=== PATIENT | male | born 1965 | race Caucasian/White ===

== ENCOUNTER 2018-10-24 11:52 | Emergency (ER) | payer OTHER ==
--- NOTE | 2018-10-24 11:54 | ED Physician Documentation ---
Fall - HISTORIAN Historian: patient - HPI Stated Complaint: fell and hit his back/neck/head Chief Complaint: Fall Onset: just prior to arrival Where: home Context: slipped r: mild Associated Symptoms:: no loss of consciousness Location of Pain/Injury: head, neck, upper back, mid back, lower back, upper ext remity, hip Injury to Right Extremity: arm Injury to Left Extremity: none Further Comments: yes (he states he slipped down 4 stairs. Hit and scapped his back but hit his head and did feel "dazed" but did not have any LOC. He remembers the entire incident. He has pain in his right foream and back as well as head. He has no report of loss of control of bowel or bladder) - ROS CONST: no problems GI/: denies: problems urinating - PAST HX Past History: other (hypertension, PTSD, depression ) Immunizations: UTD Allergies/Adverse Reactions: Allergies Allergy/AdvReac Type Severity Reaction Status Date / Time No Known Allergies Allergy Verified 10/24/18 14:28 - SOCIAL HX Smoking History: non-smoker Alcohol Use: none Drug Use: none - FAMILY HX Family History: none - REVIEWED ASSESSMENTS Nursing Assessment Reviewed: Yes Vitals Reviewed: Yes Progress - Progress Progress: 1302: discussed findings resulted. He does not want IM medication due to fear of needles DG 1338: Pt states he would like [facility] [place] [facility] [place] ER states they cannot take pt Dr Britton [facility] will take pt DG ED Results Lab/Radiology - Radiology Radiology Impressions: CT HEAD WO CONTRAST History: FALL BACKWARDS OFF STAIRS. HEADACHE, BILATERAL HIP PAIN, BACK PAIN, AND RT ARM PAIN Technique: Standard noncontrast CT was performed with contiguous axial images acquired from skull base to vertex. Findings: There is no acute extra-axial fluid collection. Ventricles are of normal size, shape, and morphology. No mass effect or midline shift is present. No evidence of acute hemorrhage. The hernandez-white matter differentiation is normal. The visualized portions of the orbits, and paranasal sinuses, and mastoids are normal. No fractures are identified. Impression: 1. Normal non contrast brain CT. Electronically signed on Oct 24, 2018 12:55:46 PM OIL WELL PERFORATOR OPERATOR by: Aba Pollard CT cervical spine without contrast History: Pain after fall backwards. Technique: Transaxial computed tomographic images of the cervical spine were obtained without contrast according to standard protocol. Findings: There is reversal of the normal cervical lordosis. There is no evidence of acute fracture. The odontoid process is intact. There is intervertebral disc space narrowing most significant at C5-C6 and C6-C7 with anterior spurring and mild posterior disc bulging noted at these levels. There is no paravertebral soft tissue swelling present. The lung apices are clear. Impression: 1. No acute osseous injury. 2. Reversal of normal cervical lordosis with multilevel spondylosis. Electronically signed on Oct 24, 2018 12:56:27 PM OIL WELL PERFORATOR OPERATOR by: Aba Pollard FOREARM 2 VIEWS History: FALL BACKWARDS OFF STAIRS. HEADACHE, BILATERAL HIP PAIN, BACK PAIN, AND RT ARM PAIN. Findings: The osseous structures are intact without acute fracture. The joint space and alignment are normal. There is no soft tissue swelling. Impression: 1. No acute osseous abnormality. Electronically signed on Oct 24, 2018 12:54:27 PM OIL WELL PERFORATOR OPERATOR by: Aba Pollard CT thoracic spine without contrast History: Back pain after fall. Technique: Transaxial computed tomographic images of the cervical spine were obtained without contrast according to standard protocol. Coronal and sagittal reformatted images were obtained as part of the examination. Findings: The thoracic vertebral body heights and alignments are normal. There is a fracture of the right T12and L1 transverse process and posterior lateral aspect of the right 12th rib. There is intervertebral disc space narrowing the mid and lower thoracic spine. There is anterior spurring present also within the mid and lower thoracic spine. A Schmorl's node is seen in the superior endplate of T10. Small right pleural effusion is present with trace right pneumothorax seen. Subcutaneous gas is seen extending along the posterior lateral aspect of the chest wall. Impression: 1. Right T12 and L1 transverse process fracture with fracture of the posterior lateral aspect of the right 12th rib partially imaged. 2. Trace right pleural effusion and trace pneumothorax on the right with gas extending into the posterior lateral aspect of the chest wall. Electronically signed on Oct 24, 2018 1:03:31 PM OIL WELL PERFORATOR OPERATOR by: Aba Pollard CT pelvis without contrast History: Fall backwards with bilateral hip pain and back pain. Technique: Transaxial computed tomographic images of the pelvis were obtained without contrast according to standard protocol. Findings: Bilateral proximal femurs are intact with femoral head is well seated within the respective acetabula. There is mild narrowing of the bilateral hip joint spaces. The osseous structures the pelvis are intact. There is degenerative change in lower lumbar spine most prominent at L5-S1. No evidence of subcutaneous large hematoma present. Few diverticula present in the colon. No free fluid is present. Impression: 1. No acute osseous injury of the pelvis. 2. Mild lumbar spondylosis. Electronically signed on Oct 24, 2018 1:09:34 PM OIL WELL PERFORATOR OPERATOR by: Aba Pollard CT lumbar spine without contrast History: Fall with pain. Technique: Transaxial computed tomographic images of the lumbar spine were obtained without contrast according to standard protocol. Findings: There is a fracture of the right T12 and L1 transverse process. There is mild wedging deformity present at L1 which is age indeterminate. There is also a Schmorl's node in the superior endplate of L1 noted. This could be chronic. There is a fracture of the posterior lateral aspect of the right 12th rib with trace right pneumothorax is visualized. There is degenerative change in the lower lumbar spine with minimal anterolisthesis of L4 on L5 present. There is facet arthropathy at L4-5 and L5- S1. Impression: 1. Acute fracture the right T12 and L1 transverse process. 2. Right posterior lateral 12th rib fracture with trace right pneumothorax. 3. Wedging deformity present at L1 with superior endplate Schmorl's node present, this fracture is age indeterminate . 4. Multilevel spondylosis. Electronically signed on Oct 24, 2018 1:08:34 PM OIL WELL PERFORATOR OPERATOR by: Aba Pollard Fall Physical Exam - Physical Exam General Appearance: no acute distress, alert, mild distress. No: c-collar DENTAL SALES REPRESENTATIVE, c-collar in ED, backboard DENTAL SALES REPRESENTATIVE, backboard in ED Head: trauma (right posterior scalp with mild swelling . ) Neck: painless ROM, limited ROM (pain with palpation right lateral side of neck. ) Eye: LAMBERTO ENT: nml external inspection Resp/CVS: chest non-tender, breath sounds nml, no resp. distress, heart sounds nml Abdomen: soft, normal bowel sounds, no distension Neuro: oriented x3, CN's nml as tested, sensation nml, motor nml, mood/affect nml, non profit director nml, reflexes nml, non profit director symmetrical Skin: color nml, other (red abrasion on right middle to lower lateral back pain with palpation in this area ) Back: other (pain with palpation right back upper mid lower ) Extremities: atraumatic, pelvis stable, painful weight bearing, other (pain with palpation right hip ) Joint: joints nml, painful (walking on right side -- right forearm with small open abrasion with crusting blood. Pulses + FROM pain with palpation. ) - Gail Coma Score Eyes Open: Spontaneous Speech: Oriented Motor: Obeys Commands Discharge Clincal Impression: Pneumothorax Qualifiers: Pneumothorax type: traumatic Encounter type: initial encounter Qualified Co de(s): S27.0XXA - Traumatic pneumothorax, initial encounter Referrals: Primary Doctor,No [Primary Care Provider] - 2 Days Condition: Serious Disposition: XFER SHT-TRM HOSP Decision to Admit: NO Date of Decison to Admit: 10/24/18 Decision Time: 13:39
[2018-10-24] MEDS ORDERED: ORPHENADRINE CITRATE 60 MG/2 ML ML IM ONE (12:59)
[2018-10-24] MEDS ORDERED: KETOROLAC TROMETHAMINE 60 MG/2 ML VIAL IM ONE (12:59)
[2018-10-24] MEDS ORDERED: oxyCODONE/ACETAMINOPHEN 5/325 TABLET PO ONE (13:02)
[2018-10-24] MEDS ORDERED: CYCLOBENZAPRINE HCL 10 MG TABLET PO ONE (13:02)
--- NOTE | 2018-10-24 13:06 | Diagnostic Imaging Report ---
PATRICIA NEWBERRY [facility] [address] [facility].[address] [address] Report Submission Date: Oct 24, 2018 12:54:27 PM OUTPATIENT COORDINATOR Patient Study Name: ALTAF SHIPLEY Date: Oct 24, 2018 12:26:03 PM OUTPATIENT COORDINATOR Modality Type: DX Gender: M Description: FOREARM 2 VIEWS : 61 Institution: [facility] Physician: PATRICIA NEWBERRY FOREARM 2 VIEWS History: FALL BACKWARDS OFF STAIRS. HEADACHE, BILATERAL HIP PAIN, BACK PAIN, AND RT ARM PAIN. Findings: The osseous structures are intact without acute fracture. The joint space and alignment are normal. There is no soft tissue swelling. Impression: 1. No acute osseous abnormality. Electronically signed on Oct 24, 2018 12:54:27 PM OUTPATIENT COORDINATOR by: Aba HSIEH
--- NOTE | 2018-10-24 13:07 | Diagnostic Imaging Report ---
PATRICIA NEWBERRY [facility] [address] [facility] [address] [place], [place]. [address] Report Submission Date: Oct 24, 2018 12:56:27 PM SALES COMMISSIONS ANALYST Patient Study Name: ALTAF SHIPLEY Date: Oct 24, 2018 12:13:55 PM SALES COMMISSIONS ANALYST Modality Type: CT Gender: M Description: CT C-SPINE W/O CONTRAS : 61 Institution: [facility] Physician: PATRICIA NEWBERRY CT cervical spine without contrast History: Pain after fall backwards. Technique: Transaxial computed tomographic images of the cervical spine were obtained without contrast according to standard protocol. Findings: There is reversal of the normal cervical lordosis. There is no evidence of acute fracture. The odontoid process is intact. There is intervertebral disc space narrowing most significant at C5-C6 and C6-C7 with anterior spurring and mild posterior disc bulging noted at these levels. There is no paravertebral soft tissue swelling present. The lung apices are clear. Impression: 1. No acute osseous injury. 2. Reversal of normal cervical lordosis with multilevel spondylosis. Electronically signed on Oct 24, 2018 12:56:27 PM SALES COMMISSIONS ANALYST by: Aba Pollard [facility] CENTER[facility]
--- NOTE | 2018-10-24 13:07 | Diagnostic Imaging Report ---
PATRICIA NEWBERRY [facility] [address] [facility] [address] [place], [place]. [address] Report Submission Date: Oct 24, 2018 12:55:46 PM TIE IN MACHINE OPERATOR Patient Study Name: ALTAF SHIPLEY Date: Oct 24, 2018 12:11:41 PM TIE IN MACHINE OPERATOR Modality Type: CT Gender: M Description: CT BRAIN W/O CONTRAST : 61 Institution: [facility] Physician: PATRICIA NEWBERRY CT HEAD WO CONTRAST History: FALL BACKWARDS OFF STAIRS. HEADACHE, BILATERAL HIP PAIN, BACK PAIN, AND RT ARM PAIN Technique: Standard noncontrast CT was performed with contiguous axial images acquired from skull base to vertex. Findings: There is no acute extra-axial fluid collection. Ventricles are of normal size, shape, and morphology. No mass effect or midline shift is present. No evidence of acute hemorrhage. The hernandez-white matter differentiation is normal. The visualized portions of the orbits, and paranasal sinuses, and mastoids are normal. No fractures are identified. Impression: 1. Normal non contrast brain CT. Electronically signed on Oct 24, 2018 12:55:46 PM TIE IN MACHINE OPERATOR by: Aba SHIEH
--- NOTE | 2018-10-24 13:08 | Diagnostic Imaging Report ---
PATRICIA NEWBERRY [facility] [address] [facility] [address] [place] [address]. [address] Report Submission Date: Oct 24, 2018 1:03:31 PM PRINT TRAFFIC MANAGER Patient Study Name: ALTAF SHIPLEY Date: Oct 24, 2018 12:16:11 PM PRINT TRAFFIC MANAGER Modality Type: CT Gender: M Description: CT T-SPINE W/O CONTRAS : 61 Institution: [facility] Physician: PATRICIA NEWBERRY CT thoracic spine without contrast History: Back pain after fall. Technique: Transaxial computed tomographic images of the cervical spine were obtained without contrast according to standard protocol. Coronal and sagittal reformatted images were obtained as part of the examination. Findings: The thoracic vertebral body heights and alignments are normal. There is a fracture of the right T12and L1 transverse process and posterior lateral aspect of the right 12th rib. There is intervertebral disc space narrowing the mid and lower thoracic spine. There is anterior spurring present also within the mid and lower thoracic spine. A Schmorl's node is seen in the superior endplate of T10. Small right pleural effusion is present with trace right pneumothorax seen. Subcutaneous gas is seen extending along the posterior lateral aspect of the chest wall. Impression: 1. Right T12 and L1 transverse process fracture with fracture of the posterior lateral aspect of the right 12th rib partially imaged. 2. Trace right pleural effusion and trace pneumothorax on the right with gas extending into the posterior lateral aspect of the chest wall. Electronically signed on Oct 24, 2018 1:03:31 PM PRINT TRAFFIC MANAGER by: Aba HSIEH
--- NOTE | 2018-10-24 13:15 | Diagnostic Imaging Report ---
PATRICIA NEWBERRY [facility] [place] [facility] [address] [facility] [address] [place], [place]. [address] Report Submission Date: Oct 24, 2018 1:09:34 PM PLC TECHNICIAN Patient Study Name: ALTAF SHIPLEY Date: Oct 24, 2018 12:22:05 PM PLC TECHNICIAN Modality Type: CT Gender: M Description: CT PELVIS W/O CONTRAST : 61 Institution: [facility] [place] [facility] Physician: PATRICIA NEWBERRY CT pelvis without contrast History: Fall backwards with bilateral hip pain and back pain. Technique: Transaxial computed tomographic images of the pelvis were obtained without contrast according to standard protocol. Findings: Bilateral proximal femurs are intact with femoral head is well seated within the respective acetabula. There is mild narrowing of the bilateral hip joint spaces. The osseous structures the pelvis are intact. There is degenerative change in lower lumbar spine most prominent at L5-S1. No evidence of subcutaneous large hematoma present. Few diverticula present in the colon. No free fluid is present. Impression: 1. No acute osseous injury of the pelvis. 2. Mild lumbar spondylosis. Electronically signed on Oct 24, 2018 1:09:34 PM PLC TECHNICIAN by: Aba HSIEH
--- NOTE | 2018-10-24 13:15 | Diagnostic Imaging Report ---
PATRICIA NEWBERRY [facility] [place] [facility] [address] [facility] [address] [place], [place]. [address] Report Submission Date: Oct 24, 2018 1:08:34 PM LUMP ROLLER Patient Study Name: ALTAF SHIPLEY Date: Oct 24, 2018 12:19:19 PM LUMP ROLLER Modality Type: CT Gender: M Description: CT L-SPINE W/O CONTRAS : 61 Institution: [facility] [place] [facility] Physician: PATRICIA NEWBERRY CT lumbar spine without contrast History: Fall with pain. Technique: Transaxial computed tomographic images of the lumbar spine were obtained without contrast according to standard protocol. Findings: There is a fracture of the right T12 and L1 transverse process. There is mild wedging deformity present at L1 which is age indeterminate. There is also a Schmorl's node in the superior endplate of L1 noted. This could be chronic. There is a fracture of the posterior lateral aspect of the right 12th rib with trace right pneumothorax is visualized. There is degenerative change in the lower lumbar spine with minimal anterolisthesis of L4 on L5 present. There is facet arthropathy at L4-5 and L5- S1. Impression: 1. Acute fracture the right T12 and L1 transverse process. 2. Right posterior lateral 12th rib fracture with trace right pneumothorax. 3. Wedging deformity present at L1 with superior endplate Schmorl's node present, this fracture is age indeterminate . 4. Multilevel spondylosis. Electronically signed on Oct 24, 2018 1:08:34 PM LUMP ROLLER by: Aba HSIEH
[2018-10-24] MEDS ORDERED: fentaNYL CITRATE/PF 100 MCG/2 ML INJ. IVP ONE (13:32)
[2018-10-24 13:37] LABS: BASOPHILS % 0.9 (0.0-1.5); EOSINOPHILS % 2.1 % (0.0-6.8); MEAN CORPUSCULAR HEMOGLOBIN 33.6 pg (28.0-34.0); MONOCYTES % 7.9 % (0.0-11.0)
[2018-10-24] MEDS ORDERED: 0.9 % SODIUM CHLORIDE 1,000 ML IV ONE (13:37)
[2018-10-24 13:38] LABS: NEUTROPHILS # 7.9 # k/uL (1.4-7.7)
[2018-10-24 14:00] LABS: eGFR (Non-African) > 60
[2018-10-24 15:13] VITALS: BP 143/69
== END 2018-10-24 15:13 | disposition short-term general hospital (02) ==
LOC: ED 11:52
DX: S27.0XXA Traumatic pneumothorax, initial encounter (principal); S22.089A Unspecified fracture of T11-T12 vertebra, initial encounter for closed fracture; S22.31XA Fracture of one rib, right side, initial encounter for closed fracture; W10.9XXA Fall (on) (from) unspecified stairs and steps, initial encounter; Y93.01 Activity, walking, marching and hiking; Y92.008 Other place in unspecified non-institutional (private) residence as the place of occurrence of the external cause
CPT/HCPCS: 36415; 70450; 72125; 72128; 72131; 72192; 73090; 80053; 85025; 85610; 96374; 99285; J3010; J7030; S1016